=== PATIENT | female | born 1960 | race Caucasian/White ===

== ENCOUNTER 2019-05-12 15:05 | Day surgery (SDC) | payer BC ==
[~2019-05-12] VITALS: Ht 165.1 cm; Wt 58.6 kg
[2019-05-12] VITALS (15 sets, daily range): BP systolic 104–127; BP diastolic 50–70; PULSE 83–114; RESP 14–82; Ht 165.1 cm; Wt 58.6 kg
[2019-05-12] MEDS ORDERED: PROPOFOL 20 ML ONE (17:20)
[2019-05-12] MEDS ORDERED: SUGAMMADEX SODIUM 200 MG/2 ML VIAL IV ONE (17:20)
[2019-05-12] MEDS ORDERED: ROCURONIUM 50 MG INJ ONE (17:20)
[2019-05-12] MEDS ORDERED: MIDAZOLAM 1 MG/ML 2 ML INJ ONE (17:20)
[2019-05-12] MEDS ORDERED: NEOSTIGMINE 3 MG/3 ML SYRINGE ONE (17:20)
[2019-05-12] MEDS ORDERED: GLYCOPYRROLATE 0.4 MG INJ ONE (17:20)
[2019-05-12] MEDS ORDERED: CEFAZOLIN 1 GM INJ ONE (17:20)
[2019-05-12] MEDS ORDERED: FENTAnyl 50 MCG/ML VIAL ONE (17:21)
[2019-05-12] MEDS ORDERED: ONDANSETRON 4 MG INJ ONE (17:21)
[2019-05-12] MEDS ORDERED: DEXAMETHASONE 4 MG/ML 5 ML INJ ONE (17:21)
[2019-05-12] MEDS ORDERED: ROPIVACAINE 0.5 % 30 ML VIAL ONE ×2 (17:26→17:30)
[2019-05-12] MEDS ORDERED: NEOMYC/POLYMYX/BACIT 30 GM OINT ONE (17:31)
[2019-05-12] MEDS ORDERED: NEOMYC/POLYMYX/BACIT 3.5GM OPH OINT ONE (17:31)
[2019-05-12] MEDS ORDERED: morphine 2 MG INJ IV PRN (18:00)
[2019-05-12] MEDS ORDERED: METOCLOPRAMIDE 10 MG INJ ONE (20:33)
[2019-05-12] MEDS ORDERED: ALBUTEROL 0.083% (NEB) 2.5 MG/3 ML AMP HHN PRN (21:00)
[2019-05-12] MEDS ORDERED: TRIMETHOBENZAMIDE 100 MG/ML VIAL IM PRN (21:00)
[2019-05-12] MEDS ORDERED: FENTAnyl 50 MCG/ML VIAL IV PRN ×3 (21:00)
[2019-05-12] MEDS ORDERED: MEPERIDINE 25 MG INJ IV PRN (21:00)
[2019-05-12] MEDS ORDERED: OXYCODONE/ACETAMINOPHEN (5/325) TAB PO PRN ×2 (21:00)
[2019-05-12] MEDS ORDERED: DIPHENHYDRAMINE 50 MG INJ IV PRN (21:00)
[2019-05-12] MEDS ORDERED: MIDAZOLAM 1 MG/ML 2 ML INJ IV PRN (21:00)
[2019-05-12] MEDS ORDERED: LABETALOL HCL 20MG INJ IV PRN (21:00)
[2019-05-12] MEDS ORDERED: EPHEDrine 25 MG/5 ML SYG IV PRN (21:00)
[2019-05-12] MEDS ORDERED: IPRATROPIUM (NEB) 0.5 MG/2.5 ML AMP HHN PRN (21:00)
[2019-05-12] MEDS ORDERED: hydrALAzine 20 MG INJ IV PRN (21:00)
[2019-05-12] MEDS ORDERED: METOCLOPRAMIDE 10 MG INJ IV PRN (21:00)
[2019-05-12] MEDS ORDERED: HYDROmorphONE 1 MG/5 ML IV SYRINGE IV PRN ×3 (21:00)
== END 2019-05-12 22:20 | disposition home or self-care (01) ==
LOC: SDS 15:05
PROVIDERS: ATTEND Orthopaedic Surgery
DX: S82.852A Displaced trimalleolar fracture of left lower leg, initial encounter for closed fracture (principal); X58.XXXA Exposure to other specified factors, initial encounter; V18.4XXA Pedal cycle driver injured in noncollision transport accident in traffic accident, initial encounter; Y93.55 Activity, bike riding; Y92.89 Other specified places as the place of occurrence of the external cause
CPT/HCPCS: 27822; 73610; 82306; C1713; J0690; J1100; J2250; J2405; J2710; J2765; J2795; J3010